=== PATIENT | male | born 1990 | race Caucasian/White ===

== ENCOUNTER 2018-09-06 18:33 | Emergency (ER) | payer MEDICAID ==
[~2018-09-06] VITALS: Ht 180.3 cm; Wt 81.0 kg
--- NOTE | 2018-09-06 18:51 | NUR ---
HE IS IN CT, HE CAME TO ROOM FEELING SLEEPY. 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 HE IS PALE AND FEELING A LITTLE NAUSEATED.
[2018-09-06] MEDS ORDERED: ondansetron 4mg rapidly disintigrating tab PO STA (18:56)
--- NOTE | 2018-09-06 18:57 | NUR ---
SPOKE WITH ALESSIO SALEEM, HE STATES I CAN ORDER ZOFRAN ODT.
[2018-09-06] MEDS ORDERED: NO HOME MEDS (19:05)
[2018-09-06] MEDS ORDERED: LIDOcaine 1% w/epiNEPHrine 1:200,000 30ml vial IM ONE (19:40)
[2018-09-06 20:39] VITALS: BP 133/78
== END 2018-09-06 20:40 | disposition home or self-care (01) ==
LOC: ER 18:34
DX: S01.01XA Laceration without foreign body of scalp, initial encounter (principal); R11.2 Nausea with vomiting, unspecified; Z98.890 Other specified postprocedural states; W16.522A Jumping or diving into swimming pool striking bottom causing other injury, initial encounter; Y93.11 Activity, swimming; Y92.34 Swimming pool (public) as the place of occurrence of the external cause; Y99.8 Other external cause status
CPT/HCPCS: 12002; 70450; 72125; 99284; J2405

== ENCOUNTER 2018-09-17 14:34 | Emergency (ER) | payer MEDICAID ==
[~2018-09-17] VITALS: Ht 180.3 cm; Wt 83.0 kg
[~2018-09-17 14:34] MED LIST: NO HOME MEDS
[2018-09-17 14:46] VITALS: BP 155/81
== END 2018-09-17 14:52 | disposition home or self-care (01) ==
LOC: ER 14:35
DX: S01.01XD Laceration without foreign body of scalp, subsequent encounter (principal); F10.99 Alcohol use, unspecified with unspecified alcohol-induced disorder; Z98.890 Other specified postprocedural states; W16.52 Jumping or diving into swimming pool striking bottom; Y90.9 Presence of alcohol in blood, level not specified
CPT/HCPCS: 99282